=== PATIENT | male | born 1950 | race Two or more races ===

== ENCOUNTER 2022-01-05 14:49 | Emergency (ER) | payer OTHER ==
[~2022-01-05] VITALS: Ht 175.3 cm; Wt 58.1 kg
[2022-01-05] MEDS ORDERED: TRICOR145 MG (15:04)
[2022-01-05] MEDS ORDERED: COZAAR50 MG (15:04)
[2022-01-05] MEDS ORDERED: NEURONTIN300 MG (15:04)
[2022-01-05] MEDS ORDERED: GLUMETZA1000 MG (15:04)
== END 2022-01-05 21:19 | disposition home or self-care (01) ==
LOC: ER 14:49
DX: R47.81 Slurred speech (principal); E11.9 Type 2 diabetes mellitus without complications; Z79.84 Long term (current) use of oral hypoglycemic drugs; I10 Essential (primary) hypertension; Z88.2 Allergy status to sulfonamides; Z88.8 Allergy status to other drugs, medicaments and biological substances